=== PATIENT | female | born 1970 | race Two or more races ===

== ENCOUNTER 2023-04-25 21:27 | Emergency (ER) | payer OTHER ==
[~2023-04-25] VITALS: Ht 165.1 cm; Wt 97.5 kg
[2023-04-25] MEDS ORDERED: KETOROLAC TROMETHAMINE 60 MG VIAL IM STA (23:15)
[2023-04-25 23:58] LABS: HEMOGLOBIN 13.3 g/dL (12.0-15.00); MEAN CELL VOLUME 90.5 fL (80.00-100.00); MEAN CORPUSCULAR HEMOGLOBIN 30.8 pg (27.00-32.0); PLATELET COUNT 193 K/uL (150-450); RED BLOOD COUNT 4.31 M/uL (4.00-6.00); RED CELL DISTRIBUTION WIDTH 13.6 % (11.5-14.5)
[2023-04-26 00:32] LABS: PH,URINE 7.5 (5.0-8.0); URINE APPEARANCE Cloudy; URINE BILIRRUBIN Negative (NEGATIVE); URINE BLOOD Negative; URINE COLOR Yellow; URINE GLUCOSE Negative (NEGATIVE); URINE LEUKOCYTE Negative; URINE NITRATE Negative; URINE PROTEIN Negative (NEGATIVE)
[2023-04-26 00:36] LABS: URINE BACTERIA 56.6 uL (0.0-1933); URINE EPITHELIAL CELLS 20.5 uL (0.0-38.8); URINE RBC 20.6 uL (0.0-20.8); URINE WBC 13.1 uL (0.0-23.2)
[2023-04-26] MEDS ORDERED: DOLOGESIC-DF 51 EACH PO (04:26)
== END 2023-04-26 05:23 | disposition home or self-care (01) ==
LOC: ER 21:27
DX: U07.1 COVID-19 (principal)
CPT/HCPCS: 36415; 96372; 99282; J1885